=== PATIENT | female | born 1975 | race Caucasian/White ===

== ENCOUNTER → 2024-08-02 12:16 | Outpatient (REF) | payer OTHER, SELFPAY | LOC: HWWDC 12:16 | PROVIDERS: ATTENDING PHYSICIAN Family Medicine; REFERRING PHYSICIAN Obstetrics & Gynecology | DX: Z12.31 Encounter for screening mammogram for malignant neoplasm of breast (principal) | CPT/HCPCS: 77063; 77067 ==

== ENCOUNTER 2025-02-24 06:22 | Day surgery (SDC) | payer BC, SELFPAY | END 2025-02-24 12:03 | disposition home or self-care (01) | LOC: GI 06:22 | PROVIDERS: ATTENDING PHYSICIAN Internal Medicine Gastroenterology | DX: Z12.11 Encounter for screening for malignant neoplasm of colon (principal); K62.1 Rectal polyp; K64.0 First degree hemorrhoids | CPT/HCPCS: 45380; 88305 ==